=== PATIENT | male | born 1995 | race Caucasian/White ===

== ENCOUNTER 2018-08-01 14:12 | Emergency (ER) | payer OTHER ==
[2018-08-01] MEDS ORDERED: Ketorolac INJ* 60 MG/2 ML VIAL IM ONE (14:48)
[2018-08-01] MEDS ORDERED: NS 0.9% 1000 ML** 1,000 ML IV ONE (16:56)
[2018-08-01] MEDS ORDERED: Morphine 4 MG/ML VIAL (1 ml) 4 MG/ML VIAL IV ONE (16:56)
[2018-08-01] MEDS ORDERED: Ondansetron INJ* 2 MG/ML VIAL IV ONE (16:56)
--- NOTE | 2018-08-01 17:03 | ED ---
Back Pain - HPI Summary HPI Summary: Patient is a 23-year-old male who presents emergency department for acute right- sided flank pain that started today. Patient notes he has a history of kidney stones and passed a stone in May. Patient was seen at [facility] at that time and had a CT scan done. Patient states he followed up with urology and was told he has another stone in his right kidney that was roughly the same size as the stone he passed which was 3 mm. Associated symptoms of nausea, vomiting and hematuria. Patient has no other past medical history. Symptoms are moderate in severity. No current modifying factors. Pt. states he took a dose flomax and lortab today but then threw up. - History of Current Complaint Chief Complaint: EDFlankPain Stated Complaint: PAIN IN LOW BACK R SIDE PER PT Time Seen by Provider: 08/01/18 16:46 Hx Obtained From: Patient Pain Intensity: 8 - Allergies/Home Medications Allergies/Adverse Reactions: Allergies Allergy/AdvReac Type Severity Reaction Status Date / Time No Known Allergies Allergy Unverified 08/01/18 14:14 Home Medications: Home Medications NK [No Home Medications Reported] 08/01/18 [History Confirmed 08/01/18] PMH/Surg Hx/FS Hx/Imm Hx Previously Healthy: Yes Infectious Disease History: No Infectious Disease History: Denies: Traveled Outside the [place] in Last 30 Days - Family History Known Family History: Positive: Non-Contributory - Social History Occupation: Student Lives: With Family Alcohol Use: Occasionally Substance Use Type: Reports: None Smoking Status (MU): Never Smoked Tobacco Review of Systems Constitutional: Negative Negative: Fever, Chills Cardiovascular: Negative Respiratory: Negative Positive: Vomiting, Nausea Positive: flank pain, hematuria All Other Systems Reviewed And Are Negative: Yes Physical Exam Triage Information Reviewed: Yes Vital Signs On Initial Exam: Initial Vitals Temp Pulse Resp BP Pulse Ox 98.1 F 104 20 138/101 97 08/01/18 14:15 08/01/18 14:15 08/01/18 14:15 08/01/18 14:15 08/01/18 14:15 Vital Signs Reviewed: Yes Appearance: Positive: Pain Distress - Pt. sitting on bed, appears uncomfortable but nontoxic. Family present. Skin: Positive: Warm, Dry Head/Face: Positive: Normal Head/Face Inspection Eyes: Positive: Normal, EOMI, ISIDORO Neck: Positive: Supple Respiratory/Lung Sounds: Positive: Clear to Auscultation, Breath Sounds Present Cardiovascular: Positive: Normal, RRR Abdomen Description: Positive: Nontender, Soft, Other: - Right CVA tenderness Musculoskeletal: Positive: Normal, Strength/ROM Intact Neurological: Positive: Normal, Alert, Oriented to Person Place, Time Psychiatric: Positive: Affect/Mood Appropriate Diagnostics - Vital Signs Vital Signs Temp Pulse Resp BP Pulse Ox 08/01/18 14:15 98.1 F 104 20 138/101 97 - Laboratory Result Diagrams: 08/01/18 17:08 08/01/18 17:08 Lab Statement: Any lab studies that have been ordered have been reviewed, and results considered in the medical decision making process. Back Pain Course/Dx - Course Course Of Treatment: Patient presenting with right-sided flank pain and history of kidney stones. He is afebrile. Patient received a dose of IM Toradol in triage and has already had a renal ultrasound done which showed right-sided hydronephrosis. Patient states his pain was improving but he feels it is coming back and he has been vomiting. We'll give him a liter of IV fluids, Zofran and morphine. Check basic labs and urinalysis. Plan for DC home pending pain and vomiting control. Patient will be signed out to Rodolfo Lopez PA-C for labs and disposition. - Diagnoses Differential Diagnosis/HQI/PQRI: Positive: Renal Colic Provider Diagnoses: Urolithiasis, Hydronephrosis Discharge - Sign-Out/Discharge Documenting (check all that apply): Sign-Out Patient Signing out patient TO: Rodolfo Lopez Patient Received Moderate/Deep Sedation with Procedure: No - Discharge Plan Referrals: Campbell Alberts MD [Primary Care Provider] - - Attestation Statements Provider Attestation: pt seen by midlevel provider independently, based on their assessment, it was not necessary to present the case to me but I was available for consultation. I did not form a physician-patient relationship with the patient. The chart however, has been reviewed.
[2018-08-01 17:15] LABS: ABS Lymphocytes 0.6 10^3/ul (1.0-4.8); ABS Monocytes 0.6 10^3/ul (0-0.8); ABS Neutrophils 10.3 10^3/ul (1.5-7.7); Eosinophil % 0.1 %; Hematocrit 53 % (42-52); Hemoglobin 17.8 g/dL (14.0-18.0); Lymphocyte % 5.4 %; Mean Corpuscular HGB Conc 34 g/dL (31-36); Mean Corpuscular Hemoglobin 28 pg (27-31); Mean Corpuscular Volume 85 fL (80-94); Mean Platelet Volume 8.3 fL (7.4-10.4); Nucleated Red Blood Cells % 0.3; Platelet Count 201 10^3/uL (150-450); Red Blood Count 6.26 10^6 /uL (4.18-5.48); Red Cell Distribution Width 12 % (10-15); White Blood Count 11.5 10^3/uL (3.5-10.8)
[2018-08-01 17:46] LABS: Albumin 4.8 g/dL (3.2-5.2); Albumin/Globulin Ratio 1.5 (1-3); BUN/Creatinine Ratio 15.9 (8-20); Calcium 10.4 mg/dL (8.6-10.3); EGFR African American 77.3 (>60); EGFR Non-African American 63.9 (>60); Globulin 3.2 g/dL (2-4); Potassium 3.8 mmol/L (3.5-5.0); Total Bilirubin 1.3 mg/dL (0.2-1.0)
[2018-08-01 18:01] LABS: Urine Appearance Turbid; Urine Bacteria Absent (Absent); Urine Bilirubin Negative (Negative); Urine Blood 2+ (Negative); Urine Color Amber; Urine Glucose Negative (Negative); Urine Ketones 2+ (Negative); Urine Nitrite Negative (Negative); Urine Protein 2+(100 mg/dL) (Negative); Urine Red Blood Cell 3+(>10/hpf) (Absent); Urine Specific Gravity 1.036 (1.010-1.030); Urine Urobilinogen Negative (Negative); Urine White Blood Cell Absent (Absent)
[2018-08-01] MEDS ORDERED: Ondansetron ODT TAB* 4 MG PO ONE (19:42)
--- NOTE | 2018-08-01 19:42 | PN ---
Progress Note - Progress Note Date of Service: 08/01/18 Note: Patient signed out to me by Laith DOMÍNGUEZ pending control of patient's pain and vomiting. Patient percent to the ED for right flank pain, diagnosed with right renal calculus 3 mm in size. Patient has history of same. Pain and vomiting under control here in the ED. Patient states he feels, "nice". Rx for Zofran and oxycodone. Follow-up with urology. Patient discharged home in stable condition with diagnosis of kidney stone.
[2018-08-01 20:43] VITALS: BP 136/90
== END 2018-08-01 21:13 | disposition home or self-care (01) ==
LOC: ED 14:12
DX: N13.2 Hydronephrosis with renal and ureteral calculous obstruction (principal); Z87.442 Personal history of urinary calculi; R11.2 Nausea with vomiting, unspecified
CPT/HCPCS: 36415; 76775; 80053; 81003; 81015; 85025; 87086; 96361; 96372; 96374; 96375; 99283; A9270-GY; J1885; J2270; J2405

== ENCOUNTER 2018-08-04 17:33 | Emergency (ER) | payer OTHER ==
--- NOTE | 2018-08-04 18:14 | ED ---
GI/ HPI - HPI Summary HPI Summary: This patient is a 23 year old M presenting to ED with a chief complaint of right flank pain since 07/01/18. Patient was seen here on 07/01/18 and diagnosed with kidney stones. After being discharged, patient felt better, but today he has had increased pain since 1115 today. Since 07/01/18, patient has been taking leftover Flomax. Patient was able to urinate this morning. He took oxycodone, but it did not help. In the room, patient is in moderate pain distress. The patient rates the pain 10/10 in severity. Symptoms aggravated by nothing. Symptoms alleviated by nothing. Patient reports nausea, vomiting. PMHx of kidney stones. - History of Current Complaint Chief Complaint: EDFlankPain Time Seen by Provider: 08/04/18 18:04 Stated Complaint: KIDNEY STONES PER PT Hx Obtained From: Patient Onset/Duration: Started Hours Ago - Pain worsened 1115 this morning, Started Days Ago - Pain started 07/01/18, Still Present, Worse Since Timing: Constant, Lasting Days - Since 07/01/18 Current Severity: Severe Pain Intensity: 10 Location of Pain: Flank - Right Associated Signs and Symptoms: Positive: Nausea, Vomiting Aggravating Factor(s): Nothing Alleviating Factor(s): Nothing - Allergy/Home Medications Allergies/Adverse Reactions: Allergies Allergy/AdvReac Type Severity Reaction Status Date / Time No Known Allergies Allergy Verified 08/04/18 18:24 PMH/Surg Hx/FS Hx/Imm Hx Previously Healthy: No History: Reports: Hx Kidney Stones Sensory History: Denies: Hx Legally Blind, Hx Deafness Opthamlomology History: Denies: Hx Legally Blind - Surgical History Surgery Procedure, Year, and Place: Denies Infectious Disease History: No Infectious Disease History: Denies: Traveled Outside the [place] in Last 30 Days - Family History Known Family History: Positive: Non-Contributory - Social History Alcohol Use: Occasionally Hx Substance Use: No Substance Use Type: Reports: None Hx Tobacco Use: No Smoking Status (MU): Never Smoked Tobacco Review of Systems Positive: Vomiting, Nausea Positive: flank pain - Right All Other Systems Reviewed And Are Negative: Yes Physical Exam - Summary Physical Exam Summary: Appearance: The patient is well-nourished in moderate distress. Skin: The skin is warm and dry and skin color reflects adequate perfusion. HEENT: The head is normocephalic and atraumatic. The pupils are equal and reactive. The conjunctivae are clear and without drainage. Nares are patent and without drainage. Mouth reveals moist mucous membranes and the throat is without erythema and exudate. The external ears are intact. The ear canals are patent and without drainage. The tympanic membranes are intact. Neck: The neck is supple with full range of motion and non-tender. There are no carotid bruits. There is no neck vein distension. Respiratory: Chest is non-tender. Lungs are clear to auscultation and breath sounds are symmetrical and equal. Cardiovascular: Heart is regular rate and rhythm. There is no murmur or rub auscultated. There is no peripheral edema and pulses are symmetrical and equal. Abdomen: The abdomen is soft and non-tender. There are normal bowel sounds heard in all four quadrants and there is no organomegaly palpated. Musculoskeletal: There is no back tenderness noted. Extremities are non-tender with full range of motion. There is good capillary refill. There is no peripheral edema or calf tenderness elicited. Neurological: Patient is alert and oriented to person, place and time. The patient has symmetrical motor strength in all four extremities. Cranial nerves are grossly intact. Deep tendon reflexes are symmetrical and equal in all four extremities. Psychiatric: The patient has an appropriate affect and does not exhibit any anxiety or depression. Triage Information Reviewed: Yes Vital Signs On Initial Exam: Initial Vitals Temp Pulse Resp BP Pulse Ox 97.1 F 99 20 131/89 98 08/04/18 17:37 08/04/18 17:37 08/04/18 17:37 08/04/18 17:37 08/04/18 17:37 Vital Signs Reviewed: Yes Diagnostics - Vital Signs Vital Signs Temp Pulse Resp BP Pulse Ox 08/04/18 17:37 97.1 F 99 20 131/89 98 - Laboratory Result Diagrams: 08/04/18 18:40 08/04/18 18:40 Lab Statement: Any lab studies that have been ordered have been reviewed, and results considered in the medical decision making process. Re-Evaluation - Re-Evaluation First Eval Re-Evaluation Time: 17:20 Change: Improved Comment: Patient reports feeling better after treatment with Toradol. Therefore , the patient will be discharged home with dx of kidney stone. Patient understands and agrees with this plan. ZACKERY Course/Dx - Course Course Of Treatment: Mr. Goodwin presented complaining of pain of severe right flank pain. A couple months ago he had a left-sided kidney stone. He was seen in [facility] and told at that time that he also had a 3 mm right kidney stone. He was seen here a couple days ago and an ultrasound showed some hydronephrosis. He was treated for a likely right sided kidney stone. The presumption then was that it was probably still 3 mm or not significantly larger and that is my presumption also. His labs here were unremarkable and a UA showed only blood. He was in obvious distress on arrival and improved significantly with IV Toradol as well as Dilaudid and Zofran. He has not been taking the ibuprofen that was prescribed for him because he was concerned about taking too much medicine. He had a lot of pain 3 days ago and then yesterday felt almost completely improved except for a little bit of soreness. The pain came back with a vengeance today. I think it's likely that the stone moved today and he had some ureteral spasm. I gave him some education about using the ibuprofen and recommended follow-up with urologist. His prescription was almost out for Flomax and I continued that. He still has oxycodone. - Diagnoses Provider Diagnoses: Kidney stone Discharge - Sign-Out/Discharge Documenting (check all that apply): Patient Departure - Discharge Patient Received Moderate/Deep Sedation with Procedure: No - Discharge Plan Condition: Stable Disposition: HOME Prescriptions: Tamsulosin CAP* [Flomax CAP*] 0.4 mg PO DAILY #7 cap Patient Education Materials: Kidney Stones (ED), Flank Pain (ED) Referrals: Dorcas Reece NP [Primary Care Provider] - 3 Days Tucker Rocha MD [Medical Doctor] - 3 Days Additional Instructions: Follow up with your primary care provider in 2-3 days. Follow up with Dr. Rocha , urologist, in 2-3 days. RETURN TO THE ER FOR WORSENING OR CHANGING SYMPTOMS. - Billing Disposition and Condition Condition: STABLE Disposition: Home - Attestation Statements Document Initiated by Scribe: Yes Documenting Scribe: Yogi Saleem Provider For Whom Scribe is Documenting (Include Credential): Alireza Cardozo MD Scribe Attestation: I, Yogi Saleem, scribed for Alireza Cardozo MD on 08/04/18 at 2103. Scribe Documentation Reviewed: Yes Provider Attestation: The documentation as recorded by the scribe, Yogi Saleem accurately reflects the service I personally performed and the decisions made by me, Alireza Cardozo MD Status of Scribe Document: Viewed
[2018-08-04] MEDS ORDERED: NS 0.9% 1000 ML** 1,000 ML IV ONE (18:24)
[2018-08-04] MEDS ORDERED: Ketorolac INJ* 30 MG/ML 1 ML VIAL IV PUSH ONE (18:24)
[2018-08-04] MEDS ORDERED: Ondansetron INJ* 2 MG/ML VIAL IV ONE (18:24)
[2018-08-04] MEDS ORDERED: HYDROmorphone INJ1* 1 MG/ML SYRINGE IV SLOW PU ONE (18:24)
[2018-08-04 18:49] LABS: ABS Lymphocytes 0.5 10^3/ul (1.0-4.8); ABS Monocytes 0.6 10^3/ul (0-0.8); ABS Neutrophils 9.3 10^3/ul (1.5-7.7); Eosinophil % 0.1 %; Hematocrit 48 % (42-52); Hemoglobin 16.5 g/dL (14.0-18.0); Lymphocyte % 5.2 %; Mean Corpuscular HGB Conc 34 g/dL (31-36); Mean Corpuscular Hemoglobin 29 pg (27-31); Mean Corpuscular Volume 84 fL (80-94); Mean Platelet Volume 8.3 fL (7.4-10.4); Platelet Count 167 10^3/uL (150-450); Red Blood Count 5.73 10^6 /uL (4.18-5.48); Red Cell Distribution Width 12 % (10-15); White Blood Count 10.5 10^3/uL (3.5-10.8)
[2018-08-04 19:05] LABS: Albumin 4.6 g/dL (3.2-5.2); Albumin/Globulin Ratio 1.6 (1-3); BUN/Creatinine Ratio 11.9 (8-20); C Reactive Protein 2.65 mg/L (<8.01); Calcium 9.7 mg/dL (8.6-10.3); EGFR African American 79.9 (>60); EGFR Non-African American 66.1 (>60); Globulin 2.8 g/dL (2-4); Potassium 3.9 mmol/L (3.5-5.0); Total Bilirubin 1.3 mg/dL (0.2-1.0); Total Protein 7.4 g/dL (6.4-8.9)
[2018-08-04 19:09] LABS: Urine Appearance Clear; Urine Bacteria Absent (Absent); Urine Bilirubin Negative (Negative); Urine Blood 1+ (Negative); Urine Color Yellow; Urine Glucose Negative (Negative); Urine Ketones 2+ (Negative); Urine Nitrite Negative (Negative); Urine Protein Negative (Negative); Urine Red Blood Cell 2+(6-10/hpf) (Absent); Urine Specific Gravity 1.018 (1.010-1.030); Urine Urobilinogen Negative (Negative); Urine White Blood Cell Trace(0-5/hpf) (Absent)
[2018-08-04 20:05] VITALS: BP 129/65
== END 2018-08-04 20:04 | disposition home or self-care (01) ==
LOC: ED 17:33
DX: N20.0 Calculus of kidney (principal); R10.84 Generalized abdominal pain; R11.2 Nausea with vomiting, unspecified; Z87.442 Personal history of urinary calculi
CPT/HCPCS: 36415; 80053; 81003; 81015; 83605; 85025; 86140; 87086; 96361; 96374; 96375; 99282; J1170; J1885; J2405

== ENCOUNTER 2020-09-18 13:06 | Observation (INO) ==
[2020-09-18 15:26] LABS: Hemoglobin 19.2 g/dL (14.0-18.0); Red Blood Count 6.37 10^6 /uL (4.18-5.48)
[2020-09-18 15:27] LABS: ABS Lymphocytes 0.7 10^3/ul (1.0-4.8); ABS Monocytes 0.5 10^3/ul (0-0.8); ABS Neutrophils 10.8 10^3/ul (1.5-7.7); Hematocrit 56 % (42-52); Lymphocyte % 5.7 %; Mean Corpuscular HGB Conc 34 g/dL (31-36); Mean Corpuscular Hemoglobin 30 pg (27-31); Mean Corpuscular Volume 88 fL (80-94); Mean Platelet Volume 8.5 fL (7.4-10.4); Nucleated Red Blood Cells % 0.1; Platelet Count 222 10^3/uL (150-450); Red Cell Distribution Width 12 % (10-15)
[2020-09-18 15:49] LABS: Albumin 5.2 g/dL (3.2-5.2); Albumin/Globulin Ratio 1.7 (1-3); C Reactive Protein 3.4 mg/L (<8.01); Calcium 10.7 mg/dL (8.6-10.3); EGFR African American 108.9 (>60); Total Bilirubin 2.4 mg/dL (0.2-1.0); Total Protein 8.2 g/dL (6.4-8.9)
[2020-09-18 15:54] LABS: Urine Appearance Clear; Urine Bilirubin Negative (Negative); Urine Blood Negative (Negative); Urine Color Yellow; Urine Glucose Negative (Negative); Urine Ketones 2+ (Negative); Urine Nitrite Negative (Negative); Urine Protein 1+(30 mg/dL) (Negative); Urine Specific Gravity 1.023 (1.002-1.030); Urine Urobilinogen Negative (Negative)
[2020-09-18] MEDS ORDERED: Iohexol 300 (CONTRAST) 10 ML SDV IV ONE (15:54)
[2020-09-18 15:58] LABS: Urine Bacteria Absent (Absent); Urine Red Blood Cell 1+(3-5/hpf) (Absent); Urine White Blood Cell Trace(0-5/hpf) (Absent)
[2020-09-18] MEDS ORDERED: Ondansetron 4 mg VIAL 2 MG/ML 2 ml VIAL IV ONE (16:09)
[2020-09-18] MEDS ORDERED: Morphine 4 MG/ML VIAL (1 ml) IV ONE ×2 (16:09→18:14)
[2020-09-18] MEDS ORDERED: NS 0.9% 1000 ml BAG 1,000 ML IV ONE ×2 (16:09→19:13)
[2020-09-18] MEDS ORDERED: Ondansetron 4 mg VIAL 2 MG/ML 2 ml VIAL IV PRN (21:27)
[2020-09-18] MEDS: NS 0.9% 1000 ml BAG 1,000 ML IV SCH (23:35)
[2020-09-19 07:30] LABS: ABS Eosinophils 0.1 10^3/ul (0-0.6); ABS Lymphocytes 2.1 10^3/ul (1.0-4.8); ABS Monocytes 0.6 10^3/ul (0-0.8); ABS Neutrophils 3.9 10^3/ul (1.5-7.7); Hematocrit 43 % (42-52); Hemoglobin 14.6 g/dL (14.0-18.0); Lymphocyte % 31.2 %; Mean Corpuscular HGB Conc 34 g/dL (31-36); Mean Corpuscular Hemoglobin 30 pg (27-31); Mean Corpuscular Volume 88 fL (80-94); Mean Platelet Volume 8.5 fL (7.4-10.4); Nucleated Red Blood Cells % 0.1; Platelet Count 161 10^3/uL (150-450); Red Cell Distribution Width 12 % (10-15); White Blood Count 6.6 10^3/uL (3.5-10.8)
[2020-09-19] MEDS: NS 0.9% 1000 ml BAG 1,000 ML IV SCH ×2 (07:30→15:04)
[2020-09-19 07:46] LABS: Albumin 3.5 g/dL (3.2-5.2); Albumin/Globulin Ratio 1.8 (1-3); Calcium 7.6 mg/dL (8.6-10.3); EGFR African American 134.7 (>60); EGFR Non-African American 111.3 (>60); Globulin 1.9 g/dL (2-4); Potassium 3.6 mmol/L (3.5-5.0); Total Protein 5.4 g/dL (6.4-8.9)
[2020-09-20 11:04] VITALS: BP 96/56
[2020-09-22 15:41] LABS: Helicobacter pylori Result Not Detected; Specimen Source STOOL
== END 2020-09-20 13:48 | disposition home or self-care (01) ==
LOC: ED 13:06 → MEDTELE 13:06
PROVIDERS: ADMIT Internal Medicine; ATTEND Internal Medicine